=== PATIENT | female | born 1955 | race Two or more races ===

== ENCOUNTER 2020-11-15 20:03 | Emergency (ER) | payer BC, OTHER ==
[2020-11-15 20:10] VITALS: BP 110/57; PULSE 97; TEMP 98.7; BMI 22.3
== END 2020-11-15 23:03 | disposition home or self-care (01) ==
LOC: FER 20:03
DX: S09.90XA Unspecified injury of head, initial encounter (principal); M25.561 Pain in right knee; M25.562 Pain in left knee
CPT/HCPCS: 70450-TC; 73560-TC-LT-FY; 73560-TC-RT-FY; 99285-25

== ENCOUNTER 2023-04-12 09:55 | Emergency (ER) | payer OTHER, BC ==
[2023-04-12 10:41] VITALS: BP 109/65; PULSE 76; RESP 18; TEMP 98.1; BMI 30.2
[2023-04-12 10:48] LABS: EPITHELIAL CELLS FEW /hpf
[2023-04-12 10:49] LABS: HEMATOCRIT 38.4 % (32.4-45.2); HEMOGLOBIN 12.5 G/dL (10.7-15.3); MCH 25.3 pg (25.7-33.7); MCHC 32.6 g/dl (32.0-36.0); MEAN CELL VOLUME 77.6 fl (80-96); MEAN PLT VOLUME 8.4 fl (7.5-11.1); PLATELET COUNT 278.2 10^3/uL (134-434); RBC 4.95 10^6/uL (3.60-5.2); RDW 17.1 % (11.6-15.6); WHITE BLOOD COUNT 9.8 10^3/uL (4.0-10.8)
[2023-04-12 10:53] LABS: PLATELET ESTIMATE ADEQUATE
[2023-04-12 11:34] LABS: ALBUMIN 4.1 g/dl (3.4-5.0); BLOOD UREA NITROGEN 9.5 mg/dl (7-18); CALCIUM 9.4 mg/dl (8.5-10.1); CREATININE 0.5 mg/dl (0.6-1.3); POTASSIUM 4.2 mmol/L (3.5-5.1); SGOT/AST 16.5 U/L (15-37); SGPT/ALT 10.8 U/L (7-52); TOT PROT 7.1 g/dl (6.4-8.2)
[2023-04-12 12:07] LABS: BILIRUBIN,TOTAL 0.3 mg/dL (0.2-1)
== END 2023-04-12 13:11 | disposition home or self-care (01) ==
LOC: FER 09:55
DX: R10.11 Right upper quadrant pain (principal); A08.4 Viral intestinal infection, unspecified
CPT/HCPCS: 36415; 76705-TC; 80053; 81003; 81015; 85027; 99284-25

== ENCOUNTER 2024-10-29 14:30 | Emergency (ER) | payer OTHER, BC ==
[2024-10-29 14:51] VITALS: TEMP 98.6; BMI 31.3
[2024-10-29] MEDS ORDERED: ONDANSETRON 4 MG/2 ML VIAL ONE (15:49)
[2024-10-29] MEDS: SODIUM CHLORIDE 0.9% 500 ML INFUS.BAG IV ONE ×2 (15:50→17:35)
[2024-10-29] MEDS: ONDANSETRON 4 MG/2 ML VIAL IVPB ONE (15:52)
[2024-10-29 15:54] LABS: ABSOLUTE IMMATURE GRANULOCYTES 0.03 x10^3/uL (0.0-0.031); BASOPHILS # 0.02 x10^3/uL (0.01-0.08); EOSINOPHIL % 0.1 % (0.7-5.8); EOSINOPHILS # 0.01 x10^3/uL (0.04-0.36); HEMATOCRIT 36.1 % (34.1-44.9); HEMOGLOBIN 12.2 g/dL (11.2-15.7); MCHC 33.8 g/dl (32.2-35.5); MEAN CELL VOLUME 79.7 fl (79.4-94.8); MEAN PLT VOLUME 9.3 fl (9.4-12.3); MONOCYTE # 0.74 x10^3/uL (0.24-0.86); MONOCYTE % 9.4 % (4.7-12.5); PLATELET COUNT # 175 x10^3/uL (182-369); RDW 13.9 % (12.4-16.4)
[2024-10-29 16:17] LABS: ALBUMIN 3.9 g/dl (3.4-5.0); BILIRUBIN,TOTAL 0.6 mg/dl (0.2-1); CALCIUM 8.5 mg/dl (8.5-10.1); CREATININE 0.5 mg/dl (0.6-1.3); MAGNESIUM 1.6 mg/dL (1.8-2.4); POTASSIUM 4.1 mmol/L (3.5-5.1); TOT PROT 6.5 g/dl (6.4-8.2)
[2024-10-29 18:19] LABS: EPITHELIAL CELLS 0-5 /hpf
[2024-10-29 19:10] LABS: CALCIUM 7.5 mg/dl (8.5-10.1); CREATININE 0.4 mg/dl (0.6-1.3); POTASSIUM 4.3 mmol/L (3.5-5.1)
[2024-10-29] MEDS ORDERED: MAGNESIUM 1GM/D5W - 1 GM/100 ML IVPB IVPB ONE (19:14)
[2024-10-29] MEDS ORDERED: MAGNESIUM OXIDE 400 MG TABLET (FP) ONE (19:19)
[2024-10-29] MEDS: MAGNESIUM OXIDE 400 MG TABLET (FP) PO ONE (19:26)
[2024-10-29 19:28] VITALS: BP 116/69; PULSE 86; RESP 18
[2024-10-29 20:17] LABS: HIV INTERPRETATION NEGATIVE (NEGATIVE)
== END 2024-10-29 19:36 | disposition home or self-care (01) ==
LOC: FER 14:30
PROC: 3E033GC Introduction of Other Therapeutic Substance into Peripheral Vein, Percutaneous Approach (ICD-10-PCS; principal; 2024-10-29)
DX: J10.1 Influenza due to other identified influenza virus with other respiratory manifestations (principal); R11.2 Nausea with vomiting, unspecified; R19.7 Diarrhea, unspecified; R10.13 Epigastric pain; E86.0 Dehydration; E87.1 Hypo-osmolality and hyponatremia
CPT/HCPCS: 0241U-QW; 36415; 71046-TC-FY; 80048; 80053; 81003; 81015; 82962; 83735; 84484; 85025; 86803; 87086; 87389; 93005; 99285-25